=== PATIENT | female | born 1965 | race Caucasian/White ===

== ENCOUNTER 2017-03-13 08:03 | Emergency (ER) | payer BC ==
--- NOTE | 2017-03-14 16:19 | ER ---
ADMIT: 03/13/2017 RM/LOC: ER [facility] MR#: [id number] [address] [id number] CYNDI FLORES [address] [place] [address] Emergency Room Report SEX: F AGE: 51 : 1965 DATE: 03/13/2017 TIME: 0803 hours. Please refer to my T-sheet for complete H and P. Briefly, patient is a 51-year-old, comes in with severe flank pain. It started last night, right side, severe. She has had kidney stones, but it has been years. She has been nauseous, nothing seems to help. PHYSICAL EXAMINATION: VITAL SIGNS: Stable. ABDOMEN: She is tender in the right flank to the right CVA region. EMERGENCY DEPARTMENT COURSE: I established an IV. We gave her a liter of normal saline, Toradol 30 IV, Zofran 4 IV, 2 Nucynta p.o. because she is very sensitive to any IV narcotics, she refused them. CBC was normal. Chemistries normal. UA showed 10 red cells, 2+ leukocyte esterase, otherwise normal. negative. CT scan revealed a 4 mm right UV junction ureterolithiasis. We were able to get her pain better. Eventually she was ready for discharge. ASSESSMENT: Acute ureterolithiasis. PLAN: Nucynta, I gave her 15. Toradol 10s, I gave her 20. Zofran, I gave her 15. Return if worse. Fluids. Follow up with Dr. Patterson. Brenden Phillips MD/ joshual JOB #: [id number] CC: Brenden Phillips MD, Attending Physician Bayron Patterson, Family Physician R MD Joce Izquierdo, DO
== END 2017-03-13 13:35 | disposition home or self-care (01) ==
LOC: ER 08:03
DX: N20.2 Calculus of kidney with calculus of ureter (principal); I10 Essential (primary) hypertension; E11.9 Type 2 diabetes mellitus without complications; Z88.0 Allergy status to penicillin